=== PATIENT | female | born 1970 | race Caucasian/White ===

== ENCOUNTER → 2017-05-06 | Outpatient (CLI) | payer MEDICAID ==
[~2017-05-06] MED LIST: EFFEXOR XR75 M1 PO; FUROSEMIDE40 MG PO; HUMALOG100 U/M1 SC; LISINOPRIL 10MG10 MG PO; METOLAZONE2.5 MG PO; METOPROLOL25 MG PO; NEURONTIN800 MG PO; OMEPRAZOLE40 MG PO; PHENERGAN 25MG.25 M1 PO; POTASSIUM CHLO20 ME2 PO
[2017-05-06 12:53] LABS: AMPHETAMINES/METAMPHETAMINES NEGATIVE ng/mL (<1000)
== END ==
LOC: LAB 11:20
PROVIDERS: Emergency Medicine
DX: Z79.899 Other long term (current) drug therapy (principal)

== ENCOUNTER → 2017-06-15 | Outpatient (CLI) | payer MEDICAID ==
[2017-06-15 15:49] LABS: AMPHETAMINES/METAMPHETAMINES NEGATIVE ng/mL (<1000)
== END ==
LOC: LAB 14:04
PROVIDERS: Emergency Medicine
DX: Z79.899 Other long term (current) drug therapy (principal)

== ENCOUNTER → 2017-06-20 | Outpatient (CLI) | payer MEDICAID ==
[2017-06-20 23:30] LABS: BUN 9 mg/dL (7-18)
[2017-06-20 23:49] LABS: GFR (ESTIMATED) 59 ML/MIN (59-)
== END ==
LOC: LAB 14:20
PROVIDERS: Internal Medicine Nephrology
DX: N18.3 Chronic kidney disease, stage 3 (moderate) (principal)

== ENCOUNTER → 2017-07-05 | Outpatient (CLI) | payer MEDICAID ==
[2017-07-05 13:45] LABS: AMPHETAMINES/METAMPHETAMINES NEGATIVE ng/mL (<1000)
[2017-07-12 09:38] LABS: Alprazolam Negative (Cutoff=100); Benzodiazepines Negative ng/mL (Cutoff=100); Clonazepam Negative (Cutoff=100); Flurazepam Negative (Cutoff=100); Lorazepam Negative (Cutoff=100); Midazolam Negative (Cutoff=100); Temazepam Negative (Cutoff=100); Triazolam Negative (Cutoff=100)
== END ==
LOC: LAB 13:18
PROVIDERS: Emergency Medicine
DX: Z79.899 Other long term (current) drug therapy (principal)
CPT/HCPCS: G0480